=== PATIENT | male | born 1960 | race Two or more races ===

== ENCOUNTER → 2017-06-04 | Outpatient (CLI) | payer OTHER ==
[2017-05-09 10:30] VITALS: BP 121/68
[~2017-06-04] MED LIST: AMIO200T2 PO; AMLO1TAB97 PO; ASPI-612 PO; ASPI325T11 PO; AZOR; FURO20TA3 PO; INSU100I17 SQ; INSU200I4 SQ; METF-620 PO; METO25TA4 PO; NALT1TAB PO; OXYC1TAB7 PO; SIMV20TA3 PO; SITA100T PO
--- NOTE | 2017-06-04 16:24 | RAD ---
EXAM: Chest 2 views. HISTORY: Coronary artery bypass grafting. COMPARISON: 05/09/2017. FINDINGS: Frontal and lateral views of the chest are obtained. There are changes of coronary artery bypass grafting. The inspiration is small. There is associated atelectasis in the right greater than left bases. Trace pleural effusions are likely present. There is no pneumothorax. The heart is mildly enlarged. IMPRESSION: 1. Small inspiration with right greater than left basilar atelectasis. 2. Mild cardiomegaly.
== END | disposition home or self-care (01) ==
LOC: RAD 14:57
PROVIDERS: ATTEND Thoracic Surgery (Cardiothoracic Vascular Surgery)
DX: I51.7 Cardiomegaly (principal); J98.11 Atelectasis; Z95.1 Presence of aortocoronary bypass graft
CPT/HCPCS: 71020

== ENCOUNTER → 2017-06-15 | Outpatient (CLI) | payer OTHER ==
[2017-05-09 10:30] VITALS: BP 121/68
[2017-06-15 12:02] LABS: BASO # 0.1 x10^3/uL (0.0-0.2); BASO % 1 % (0-3); EOS % 2 % (0-3); HEMATOCRIT 38.6 % (39.0-53.0); HEMOGLOBIN 12.1 g/dL (13.0-17.5); LYMPH # 5.7 x10^3/uL (1.0-4.8); LYMPH % 48 % (24-48); MEAN CORPUSCULAR HEMOGLOBIN 27 pg (25-35); MEAN CORPUSCULAR HGB CONC 31 g/dL (31-37); MEAN CORPUSCULAR VOLUME 85 fL (79-100); MONO % 8 % (0-9); NEUT % 42 % (31-73); PLATELET COUNT 316 x10^3/uL (140-400); RED BLOOD COUNT 4.54 x10^6/uL (4.30-5.70); WHITE BLOOD COUNT 11.8 x10^3/uL (4.0-11.0)
[2017-06-15 12:06] LABS: CALCIUM 9.6 mg/dL (8.5-10.1); CREATININE 1.7 mg/dL (0.7-1.3); GFR 41.6; MAGNESIUM 1.5 mg/dL (1.8-2.4); POTASSIUM 4.2 mmol/L (3.5-5.1)
== END | disposition home or self-care (01) ==
LOC: LAB 11:29
PROVIDERS: ATTEND Internal Medicine Cardiovascular Disease
DX: I11.0 Hypertensive heart disease with heart failure (principal); I50.9 Heart failure, unspecified; Z95.1 Presence of aortocoronary bypass graft
CPT/HCPCS: 36415; 80048; 83735; 85025

== ENCOUNTER → 2020-04-26 | Outpatient (CLI) | payer OTHER ==
[2018-06-18 10:47] VITALS: BP 127/35
[~2020-04-26] MED LIST changes: -AMIO200T2 PO; +AMIO200T4 PO; +AMIT25TA PO; -ASPI-612 PO; +ASPI-886 PO; +ATORVASTATIN CA80 MG PO; +FURO40TA4 PO; +INSU100V13 SQ; +LISI-338 PO; -METF-620 PO; +METF10007 PO; +METO50TA6 PO; +SIMV20TA18 PO; -SIMV20TA3 PO; +SPIR25TA5 PO
--- NOTE | 2020-04-26 13:27 | CARD ---
MR#: [id number] Date of Study: 04/26/2020 Ordering Physician: GERMAN ORR, Referring Physician: GERMAN ORR, Tech: Aracelis Braswell [facility] APPROVED REPORT EXAM: Two-dimensional and M-mode echocardiogram with Doppler and color Doppler. Other Information Quality : Technically Limited Technically limited study due to morbid obesity INDICATION Cardiomyopathy Surgery/Intervention CABG: Date: 04/26/2017 2D DIMENSIONS RVDd3.9 (2.9-3.5cm)Left Atrium(2D)5.0 (1.6-4.0cm) IVSd1.2 (0.7-1.1cm)Aortic Root(2D)3.7 (2.0-3.7cm) LVDd5.7 (3.9-5.9cm)LVOT Diameter2.4 (1.8-2.4cm) PWd1.2 (0.7-1.1cm)LVDs3.8 (2.5-4.0cm) FS (%) 33.2 %SV97.1 ml LVEF(%)61.2 (>50%) Aortic Valve AoV Peak Maurice.108.9cm/sAoV VTI20.0cm AO Peak GR.4.7mmHgLVOT Peak Maurice.88.8cm/s AO Mean GR.3mmHgAVA (VMAX)3.65cm2 MATHEW (VTI)4.30cm2 Mitral Valve MV E Qqtdmxtr42.4cm/sMV DECEL PIEB696vc MV A Gzeacupr46.0cm/sE/A Ratio1.3 Tricuspid Valve TR P. Goyrexep980ob/sRAP ZYSYSOMU4rpEy TR Peak Gr.80huXzAEWH13fhNa Pulmonary Vein S1 Jgwccpdl83.0cm/sD2 Bmxisbyi86.0cm/s LEFT VENTRICLE The left ventricle is normal size. There is mild concentric left ventricular hypertrophy. The left ve ntricular systolic function is normal and the ejection fraction is within normal range. The Ejection Fraction is 55-60%. Septal motion suggestive of prior CABG. Otherwise, grossly normal wall motion. Te chnically limited images. RIGHT VENTRICLE The right ventricle is mildly dilated. The right ventricular systolic function is normal. ATRIA The left atrium is moderately dilated. The right atrium is moderately dilated. The interatrial septum is intact with no evidence for an atrial septal defect or patent foramen ovale as noted on 2-D or Do ppler imaging. AORTIC VALVE The aortic valve is calcified but opens well. Doppler and Color Flow revealed no significant aortic r egurgitation. There is no significant aortic valvular stenosis. MITRAL VALVE The mitral valve is calcified but opens well. There is no evidence of mitral valve prolapse. There is no mitral valve stenosis. Doppler and Color-flow revealed trace mitral regurgitation. TRICUSPID VALVE The tricuspid valve is normal in structure and function. Doppler and Color Flow revealed trace tricus pid regurgitation. There is mild-moderate pulmonary hypertension. The PA pressure was estimated at 39 mmHg. There is no tricuspid valve stenosis. PULMONIC VALVE The pulmonic valve is not well visualized. Doppler and Color Flow revealed no pulmonic valvular regur gitation. There is no pulmonic valvular stenosis. GREAT VESSELS The aortic root is normal in size. The ascending aorta is not well seen. The IVC was not visualized. PERICARDIAL EFFUSION There is no evidence of significant pericardial effusion. Critical Notification Critical Value: No <Conclusion> The left ventricular systolic function is normal and the ejection fraction is within normal range. Th e Ejection Fraction is 55-60%. Septal motion suggestive of prior CABG. Otherwise, grossly normal wall motion. Technically limited im ages. Signed by : Jae Bob, Electronically Approved : 04/26/2020 13:26:48
== END | disposition home or self-care (01) ==
LOC: ECHO 09:40
PROVIDERS: ATTEND Internal Medicine Cardiovascular Disease
DX: I08.0 Rheumatic disorders of both mitral and aortic valves (principal); I27.20 Pulmonary hypertension, unspecified; I42.9 Cardiomyopathy, unspecified; Z95.1 Presence of aortocoronary bypass graft
CPT/HCPCS: 93306

== ENCOUNTER 2020-09-14 14:57 | Inpatient (IN) | payer OTHER ==
[~2020-09-14] VITALS: Ht 172.7 cm; Wt 132.9 kg
[~2020-09-14 14:57] MED LIST changes: -AMIO200T4 PO; +AMIO200T6 PO; -LISI-338 PO; +LISI-517 PO
[2020-09-14 16:52] LABS: BASO % 0 % (0-3); EOS % 0 % (0-3); HEMATOCRIT 38.1 % (39.0-53.0); HEMOGLOBIN 12.8 g/dL (13.0-17.5); LYMPH # 1.8 x10^3/uL (1.0-4.8); LYMPH % 27 % (24-48); MEAN CORPUSCULAR HEMOGLOBIN 29 pg (25-35); MEAN CORPUSCULAR HGB CONC 34 g/dL (31-37); MEAN CORPUSCULAR VOLUME 85 fL (79-100); MONO # 0.6 x10^3/uL (0.0-1.1); MONO % 10 % (0-9); NEUT # 4.2 x10^3/uL (1.8-7.7); NEUT % 63 % (31-73); PLATELET COUNT 234 x10^3/uL (140-400); RED BLOOD COUNT 4.48 x10^6/uL (4.30-5.70); RED CELL DISTRIBUTION WIDTH 14.9 % (11.5-14.5); WHITE BLOOD COUNT 6.7 x10^3/uL (4.0-11.0)
[2020-09-14 16:53] LABS: BILIRUBIN,URINE NEGATIVE (NEG); CLARITY,URINE CLEAR; COLOR,URINE YELLOW; NITRITE,URINE NEGATIVE (NEG); PROTEIN,URINE >=300 mg/dL (NEG-TRACE); UROBILINOGEN,URINE 0.2 mg/dL (0.2 mg/dL)
[2020-09-14 17:05] LABS: CALCIUM 8.8 mg/dL (8.5-10.1); CREATININE 1.6 mg/dL (0.7-1.3); GFR 44.2; POTASSIUM 4.3 mmol/L (3.5-5.1)
[2020-09-14 17:14] LABS: HYALINE CASTS, URINE MODERATE /HPF
[2020-09-14] MEDS ORDERED: cefTRIAXone IV Push 1 GM VIAL. IVP ONE (17:15)
[2020-09-14] MEDS ORDERED: methylPREDNISolone SOD SUCC PF 125 MG/2 ML VIAL. IV ONE (17:15)
[2020-09-14] MEDS ORDERED: AZITHRMYCN 500MG IVPB FOR OMNI 250 ML IV ONE (17:15)
[2020-09-14 17:17] LABS: BACTERIA,URINE 0 /HPF (0-FEW); GRANULAR CASTS,URINE FEW /HPF; RBC,URINE 0 /HPF (0-2); WBC,URINE 0 /HPF (0-4)
[2020-09-14 17:18] LABS: ALBUMIN 2.4 g/dL (3.4-5.0); ALBUMIN/GLOBULIN RATIO 0.5 (1.0-1.7); MAGNESIUM 2.1 mg/dL (1.8-2.4); TOTAL BILIRUBIN 0.5 mg/dL (0.2-1.0); TOTAL PROTEIN 7.4 g/dL (6.4-8.2)
--- NOTE | 2020-09-14 17:19 | RAD ---
Single view chest dated 09/14/2020. Comparison made to 06/16/2018. Clinical data indication: Chest pain. FINDINGS: Single AP view performed. Heart size mildly enlarged, stable. The patient is status post median barton otomy. The upper most sternal wires are fractured, new from prior study. Patchy perihilar airspace di sease, left greater than right, increased from prior exam. Elevation of right hemidiaphragm. No appar ent pleural effusion. No pneumothorax. IMPRESSION: Increasing perihilar airspace disease, suspicious for pneumonia. Covid 19 pneumonitis not excluded. Electronically signed by: Carlo Swenson MD (09/14/2020 5:17 PM) SHONA
[2020-09-14] MEDS ORDERED: IV NORMAL SALINE 1000ML BAG 1,000 ML IV ONE (17:30)
--- NOTE | 2020-09-14 17:40 | ED.ADGEN ---
Past Medical History Past Medical History: CAD, CHF, Diabetes-Type II, High Cholesterol, Hypertension Past Surgical History: Coronary Bypass Surgery Additional Past Surgical Histo: 05/02/17 Smoking Status: Former Smoker Alcohol Use: None Drug Use: None General Adult EDM: Chief Complaint: SHORTNESS OF BREATH HPI: HPI: Patient is a 59 year old male who presents to the emergency department with complaints of diarrhea for the last week. Patient reports anything that he eats has gone right through him. He denies any blood in his stool. The patient denies any abdominal pain. He reports that today he had one episode of vomiting and he also noticed that he felt short of breath. He denies any COVID-19 exposure he denies any fever, cough, sore throat, or loss of taste/smell. The patient denies any chest pain, or palpitations. He reports that he has had fati ryan and body aches and that his shortness of breath gets worse with ambulation. The patient has history of diabetes he denies any polyuria, polydipsia, polyphagia. He currently reports generalized abdominal pain that he rates a 5 out of 10 on the pain scale, he denies any alleviating factors, the discomfort increases after eating. Review of Systems: Review of Systems: Complete ROS is negative unless otherwise noted in HPI. Current Medications: Current Medications Medications (Trade) Dose Ordered Sig/Edward Start Time Stop Time Status Last Admin Dose Admin Azithromycin 250 ml @ 250 mls/hr 1X ONCE 09/14/20 17:15 09/14/20 18:14 Ceftriaxone Sodium (Rocephin) 1 gm 1X ONCE 09/14/20 17:15 09/14/20 17:16 DC Dexamethasone Sodium Phosphate (Decadron) 10 mg 1X ONCE 09/14/20 17:45 09/14/20 17:46 Methylprednisolone Sodium Succinate (SOLU-Medrol 125MG VIAL) 125 mg 1X ONCE 09/14/20 17:15 09/14/20 17:37 DC Sodium Chloride 1,000 ml @ 1,000 mls/hr 1X ONCE 09/14/20 17:30 09/14/20 18:29 Allergies: Allergies: Allergies Coded Allergies Type Severity Reaction Last Updated Verified No Known Drug Allergies 04/26/17 No Physical Exam: PE: See Above Constitutional: Well developed, well nourished, no acute distress, non-toxic appearance, obese. [] HENT: Normocephalic, atraumatic, bilateral external ears normal, nose normal. [] Eyes: PERRLA, EOMI, conjunctiva normal, no discharge. [] Neck: Normal range of motion, no stridor. [] Cardiovascular:Heart rate regular rhythm Lungs & Thorax: Respirations even and unlabored, no retractions, no respiratory distress, lung sounds diminished, speaking full sentences Abdomen: soft, no tenderness, no rebound tenderness, no guarding, no pulsatile mass, no palpable mass Skin: Warm, dry, no erythema, no rash. [] Extremities: No cyanosis, ROM intact, no edema. [] Neurologic: Alert and oriented X 3, normal motor, normal sensory no focal deficits noted. [] Psychologic: Affect normal, judgement normal, mood normal. [] Current Patient Data: Labs: Laboratory Tests Test 09/14/20 15:45 09/14/20 16:20 Urine Collection Type Unknown Urine Color Yellow Urine Clarity Clear Urine pH 6.0 (<5.0-8.0) Urine Specific [place] >=1.030 (1.000-1.030) Urine Protein >=300 mg/dL (NEG-TRACE) Urine Glucose (UA) >=1000 mg/dL (NEG) Urine Ketones (Stick) Trace mg/dL (NEG) Urine Blood Moderate (NEG) Urine Nitrite Negative (NEG) Urine Bilirubin Negative (NEG) Urine Urobilinogen Dipstick 0.2 mg/dL (0.2 mg/dL) Urine Leukocyte Esterase Negative (NEG) Urine RBC 0 /HPF (0-2) Urine WBC 0 /HPF (0-4) Urine Squamous Epithelial Cells Mod /LPF Urine Bacteria 0 /HPF (0-FEW) Urine Cellular Casts Few /HPF Urine Hyaline Casts Moderate /HPF Urine Granular Casts Few /HPF Urine Mucus Mod /LPF White Blood Count 6.7 x10^3/uL (4.0-11.0) Red Blood Count 4.48 x10^6/uL (4.30-5.70) Hemoglobin 12.8 g/dL (13.0-17.5) L Hematocrit 38.1 % (39.0-53.0) L Mean Corpuscular Volume 85 fL (79-100) Mean Corpuscular Hemoglobin 29 pg (25-35) Mean Corpuscular Hemoglobin Concent 34 g/dL (31-37) Red Cell Distribution Width 14.9 % (11.5-14.5) H Platelet Count 234 x10^3/uL (140-400) Neutrophils (%) (Auto) 63 % (31-73) Lymphocytes (%) (Auto) 27 % (24-48) Monocytes (%) (Auto) 10 % (0-9) H Eosinophils (%) (Auto) 0 % (0-3) Basophils (%) (Auto) 0 % (0-3) Neutrophils # (Auto) 4.2 x10^3/uL (1.8-7.7) Lymphocytes # (Auto) 1.8 x10^3/uL (1.0-4.8) Monocytes # (Auto) 0.6 x10^3/uL (0.0-1.1) Eosinophils # (Auto) 0.0 x10^3/uL (0.0-0.7) Basophils # (Auto) 0.0 x10^3/uL (0.0-0.2) D-Dimer (Alena) 0.90 ug/mlFEU (0.00-0.50) H Sodium Level 133 mmol/L (136-145) L Potassium Level 4.3 mmol/L (3.5-5.1) Chloride Level 95 mmol/L (98-107) L Carbon Dioxide Level 23 mmol/L (21-32) Anion Gap 15 (6-14) H Blood Urea Nitrogen 26 mg/dL (8-26) Creatinine 1.6 mg/dL (0.7-1.3) H Estimated GFR (Cockcroft-Gault) 44.2 BUN/Creatinine Ratio 16 (6-20) Glucose Level 367 mg/dL (70-99) H Lactic Acid Level 2.2 mmol/L (0.4-2.0) H Calcium Level 8.8 mg/dL (8.5-10.1) Magnesium Level 2.1 mg/dL (1.8-2.4) Total Bilirubin 0.5 mg/dL (0.2-1.0) Aspartate Amino Transferase (AST) 29 U/L (15-37) Alanine Aminotransferase (ALT) 23 U/L (16-63) Alkaline Phosphatase 112 U/L (46-116) Creatine Kinase 102 U/L (39-308) Creatine Kinase MB (Mass) 0.5 ng/mL (0.0-3.6) Creatine Kinase MB Relative Index 0.5 % (0-4) Troponin I Quantitative < 0.017 ng/mL (0.000-0.055) LY-Mbo-K-Type Natriuretic Peptide 210 pg/mL (0-124) H Total Protein 7.4 g/dL (6.4-8.2) Albumin 2.4 g/dL (3.4-5.0) L Albumin/Globulin Ratio 0.5 (1.0-1.7) L Lipase 149 U/L (73-393) Laboratory Tests 09/14/20 16:20 Laboratory Tests 09/14/20 16:20 Vital Signs: Vital Signs Date Time Temp Pulse Resp B/P (MAP) Pulse Ox O2 Delivery O2 Flow Rate FiO2 09/14/20 17:32 99.8 77 28 134/66 (88) 92 Nasal Cannula 3.0 99.8 EKG: EK-sinus rhythm, PACs, leftward axis, incomplete right bundle branch block, no STEMI, read by Dr. Bull [] Heart Score: Risk Factors: Risk Factors: DM, Current or recent (<one month) smoker, HTN, HLP, family history of CAD, obesity. Risk Scores: Score 0 - 3: 2.5% MACE over next 6 weeks - Discharge Home Score 4 - 6: 20.3% MACE over next 6 weeks - Admit for Clinical Observation Score 7 - 10: 72.7% MACE over next 6 weeks - Early Invasive Strategies Radiology/Procedures: Radiology/Procedures: PROCEDURE: CHEST AP ONLY Single view chest dated 09/14/2020. Comparison made to 06/16/2018. Clinical data indication: Chest pain. FINDINGS: Single AP view performed. Heart size mildly enlarged, stable. The patient is status post median sternotomy. The upper most sternal wires are fractured, new from prior study. Patchy perihilar airspace disease, left greater than right, increased from prior exam. Elevation of right hemidiaphragm. No apparent pleural effusion. No pneumothorax. IMPRESSION: Increasing perihilar airspace disease, suspicious for pneumonia. Covid 19 pneumonitis not excluded. [] Course & Med Decision Making: Course & Med Decision Making Pertinent Labs and Imaging studies reviewed. (See chart for details) [id number]-spoke with Dr. Chirinos who is the admitting physician, and care was assumed following discussion of patient. Will admit patient for PUI, hypoxia, and pneumonia Patient's vital signs stable. Patient remains afebrile, appears nontoxic, respirations even and unlabored. Patient will be admitted to the medical telemetry floor. Patient's case and plan of care also discussed with Dr. Bull [] Robin Disclaimer: Robin Disclaimer: This electronic medical record was generated, in whole or in part, using a voice recognition dictation system. Departure Departure Impression: Primary Impression: Person under investigation for COVID-19 Additional Impressions: Hypoxia Pneumonia Disposition: ADMITTED INPT THIS HOSP Admitting Physician: NIGHAT (crystal) Condition: STABLE Referrals: SATYA DE OLIVEIRA (PCP) Problem Qualifiers Additional Impressions: Pneumonia Pneumonia type: due to unspecified organism Laterality: bilateral Lung location: unspecified part of lung Qualified Codes: J18.9 - Pneumonia, unspecified organism JESSICA HOSKINS [employer] Sep 14, 2020 17:40
[2020-09-14] MEDS ORDERED: DEXAMETHASONE SOD PHOS 20 MG/5 ML VIAL. IV ONE (17:45)
--- NOTE | 2020-09-14 19:09 | EKG ---
[facility] [address] [place] [address] Test Date: 2020-09-14 Test Time: 15:42:32 Pat Name: BNE ESPINAL Department: Room: Gender: M Cleat Feeder: : 1960 Requested By: JESSICA HOSKINS Order Number: [id number] Reading MD: Measurements Intervals [place] Rate: 78 P: 45 ME: 150 QRS: -24 QRSD: 94 T: 39 QT: 378 QTc: 434 Interpretive Statements SINUS RHYTHM ATRIAL PREMATURE COMPLEX(ES) LEFTWARD AXIS INCOMPLETE RIGHT BUNDLE BRANCH BLOCK OTHERWISE NORMAL ECG RI6.02 No previous ECG available for comparison
[2020-09-14] MEDS ORDERED: IOHEXOL 350 MG/ML 100 ML VIAL. IV ONE (19:15)
[2020-09-14 19:34] LABS: INFLUENZA A PATIENT NEGATIVE (NEGATIVE); INFLUENZA B PATIENT NEGATIVE (NEGATIVE)
--- NOTE | 2020-09-14 20:03 | RAD ---
INDICATION: Reason: elevated d-dimer, hypoxia / Spl. Instructions: omni 350 80 ml iv / History: COMPARISON: Plain film from earlier same day TECHNIQUE: Axial CT images obtained through the chest. Intravenous contrast utilized. Angiogram 3D images proce ssed per protocol. One or more of the following individualized dose reduction techniques were utilized for this examinat ion: 1. Automated exposure control; 2. Adjustment of the mA and/or kV according to patient size; 3 . Use of iterative reconstruction technique. FINDINGS: Hypoexpanded examination of the lungs. Multifocal opacities are seen bilaterally including nodular and groundglass component. No pneumothorax. Exophytic lesion at the left kidney is suspected measuring approximately 24 mm. Partially visualized upper abdomen the liver appears low density which can be seen with fatty infiltr ation. Is also some nodularity to the liver contour. Poststernotomy changes. There are some scattered prominent lymph nodes within the mediastinum. Post-CABG changes. Coronary artery calcific atherosclerosis. There is some apparent narrowing of the origin of the celiac artery. No embolus in the main, right main or left main pulmonary artery. Peripheral evaluation is obscured s econdary to a large amount of patient motion. IMPRESSION: No embolus in the main, right main or left main pulmonary artery with the more peripheral vessels obs cured by motion and not well evaluated. Multifocal opacities throughout the bilateral lungs which could be infectious in nature including fro m viral/atypical causes. There is some prominent lymph nodes in the mediastinum which could be reactive in nature. Coronary artery calcific atherosclerosis. Low-density lesion at the posterior aspect of the left kidney which does not have the appearance of s imple cyst. Could be from a proteinaceous cyst but solid lesions in the differential as well. If furt her evaluation is desired nonemergent ultrasound, CT or MRI could further assess Liver is low density which can be seen with fatty infiltration. Electronically signed by: Rajesh Alvarez MD (09/14/2020 8:01 PM) [id number]
[2020-09-14 20:40] VITALS: BP 150/47
[2020-09-14] MEDS ORDERED: DEXTROSE 50% 25 GM / 50ML DISP.SYRIN. IV PRN (20:45)
[2020-09-14] MEDS ORDERED: ONDANSETRON PF 4 MG/2 ML VIAL. IVP PRN (21:00)
[2020-09-14] MEDS ORDERED: CALCIUM CARBONATE 500 MG TAB.CHEW PO PRN (21:00)
[2020-09-14] MEDS ORDERED: INSULIN GLARGINE SYRINGE. SQ SCH ×2 (21:00)
[2020-09-14] MEDS ORDERED: MAG HYDROX/ALUMINUM HYD/SIMETH 30 ML ORAL.SUSP PO PRN (21:00)
[2020-09-14] MEDS ORDERED: LOPERAMIDE 2 MG CAPSULE PO PRN (21:00)
[2020-09-14] MEDS ORDERED: BISACODYL 10 MG SUPP.RECT. PR PRN (21:00)
[2020-09-14] MEDS ORDERED: ZOLPIDEM 5 MG TABLET. PO PRN (21:00)
[2020-09-14] MEDS ORDERED: MAGNESIUM HYDROXIDE 2,400 MG/30 ML ORAL.SUSP. PO PRN (21:00)
[2020-09-14] MEDS ORDERED: ACETAMINOPHEN 325 MG TABLET. PO PRN (21:00)
--- NOTE | 2020-09-14 21:19 | PDOC1 ---
History and Physical Date of Admission Date of Admission DATE: 09/14/20 TIME: 21:06 Identification/Chief Complaint Chief Complaint Diarrhea Source Source: Patient History of Present Illness History of Present Illness Patient 59-year-old male with past medical history CAD, CHF, DM 2, who presents to the ED with complaint of constant diarrhea over the past 8 days. He also reports associated fatigue, weakness decreased appetite, nausea, and vomiting x1 today. He denies any fever or known sick contacts at home. He denies any recent antibiotic use. Upon arrival in the ED he was saturating 86% on room air, which improved with 2 L O2. Chest x-ray on admission showed increased perihilar airspace disease, consistent with COVID-19 pneumonia. Due to elevated D-dimer CTA was obtained that was negative for PE. Admit patient for further medical management. Past Medical History Cardiovascular: HTN, Hyperlipidemia Pulmonary: No pertinent hx GI: No pertinent hx Heme/Onc: No pertinent hx Hepatobiliary: No pertinent hx Psych: No pertinent hx Musculoskeletal: Osteoarthritis Rheumatologic: No pertinent hx Infectious disease: No pertinent hx Endocrine: Diabetes, Other Past Surgical History Past Surgical History CABG Family History Family History: Diabetes, Hypertension Social History Smoke: No ALCOHOL: none Drugs: None Current Problem List Problem List Problems Medical Problems: (1) Hypoxia Status: Acute (2) Person under investigation for COVID-19 Status: Acute (3) Pneumonia Status: Acute Current Medications Current Medications Current Medications Ceftriaxone Sodium (Rocephin) 1 gm 1X ONCE IVP Last administered on 09/14/20at 18:32; Start 09/14/20 at 17:15; Stop 09/14/20 at 17:16; Status DC Azithromycin 250 ml @ 250 mls/hr 1X ONCE IV Last administered on 09/14/20at 18:53; Start 09/14/20 at 17:15; Stop 09/14/20 at 18:14; Status DC Methylprednisolone Sodium Succinate (SOLU-Medrol 125MG VIAL) 125 mg 1X ONCE IV ; Start 09/14/20 at 17:15; Stop 09/14/20 at 17:37; Status DC Sodium Chloride 1,000 ml @ 1,000 mls/hr 1X ONCE IV Last administered on 09/14/20at 18:31; Start 09/14/20 at 17:30; Stop 09/14/20 at 18:29; Status DC Dexamethasone Sodium Phosphate (Decadron) 10 mg 1X ONCE IV Last administered on 09/14/20at 18:32; Start 09/14/20 at 17:45; Stop 09/14/20 at 17:46; Status DC Enoxaparin Sodium (Lovenox 150mg Syringe) 150 mg 1X ONCE SQ ; Start 09/14/20 at 19:00; Stop 09/14/20 at 18:59; Status DC Iohexol (Omnipaque 350 Mg/ml) 80 ml 1X ONCE IV Last administered on 09/14/20at 19:15; Start 09/14/20 at 19:15; Stop 09/14/20 at 19:16; Status DC Ceftriaxone Sodium (Rocephin) 1 gm Q24H IVP ; Start 09/15/20 at 09:00; Stop 09/20/20 at 08:59; Status UNV Doxycycline Hyclate 100 mg/ Dextrose 100 ml @ 50 mls/hr Q12HR IV ; Start 09/15/20 at 09:00; Stop 09/20/20 at 08:59; Status UNV Active Scripts Active Furosemide 40 Mg Tablet 1 Tab PO BID Aspirin Ec (Aspirin) 325 Mg Tablet.dr 325 Mg PO [id number] 90 Days Reported Novolog Flexpen (Insulin Aspart) 100 Unit/1 Ml Insuln.pen 20 Unit SQ TIDAC Levemir (Insulin Detemir) 100 Unit/1 Ml Vial 40 Unit SQ HS Metoprolol Tartrate 50 Mg Tablet 50 Mg PO BID Atorvastatin Calcium 80 Mg Tablet 80 Mg PO HS Lisinopril 5 Mg Tablet 1 Tab PO DAILY Amitriptyline Hcl 25 Mg Tablet 1 Tab PO QHS Januvia (Sitagliptin Phosphate) 100 Mg Tablet 1 Tab PO DAILY Metformin Hcl 1,000 Mg Tablet 1,000 Mg PO BIDWMEALS Allergies Allergies: Coded Allergies: No Known Drug Allergies (Unverified , 04/26/17) ROS Review of System GENERAL: Weakness. No history of weight change or fevers. SKIN: No bruising, hair changes or rashes. EYES: No blurred, double or loss of vision. NOSE AND THROAT: No history of nosebleeds, hoarseness or sore throat. HEART: Denies chest pain, denies palpitations. LUNGS: Denies cough, hemoptysis, wheezing or shortness of breath. GASTROINTESTINAL: Decreased appetite, nausea, vomiting, diarrhea. Denies abdominal pain. GENITOURINARY: Denies dysuria, frequency, urgency, hematuria. NEUROLOGIC: Denies history of numbness, tingling, tremor or weakness. PSYCHIATRIC: Denies anxiety, denies depression. ENDOCRINE: No history of heat or cold intolerance, polyuria or polydipsia. EXTREMITIES: Denies muscle weakness, joint pain, pain on walking or stiffness. Physical Exam Physical Exam General: Alert, Oriented X3, Cooperative, No acute distress. Morbidly obese. HEENT: PERRLA, EOMI Lungs: Tachypneic. Decreased breath sounds bilaterally, Normal air movement Heart: RRR, no murmurs Cardiovascular: S1, S2 Abdomen: Normal bowel sounds, Soft, No tenderness Extremities: No clubbing, No cyanosis Skin: No rashes, No significant lesion Neuro: Normal speech, Normal tone, Sensation intact Psych/Mental Status: Mental status NL, Mood NL Vitals Vitals Vital Signs Date Time Temp Pulse Resp B/P (MAP) Pulse Ox O2 Delivery O2 Flow Rate FiO2 09/14/20 17:32 99.8 77 28 134/66 (88) 92 Nasal Cannula 3.0 99.8 Labs Labs Laboratory Tests Test 09/14/20 15:45 09/14/20 16:20 09/14/20 19:08 Urine Collection Type Unknown Urine Color Yellow Urine Clarity Clear Urine pH 6.0 (<5.0-8.0) Urine Specific [place] >=1.030 (1.000-1.030) Urine Protein >=300 mg/dL (NEG-TRACE) Urine Glucose (UA) >=1000 mg/dL (NEG) Urine Ketones (Stick) Trace mg/dL (NEG) Urine Blood Moderate (NEG) Urine Nitrite Negative (NEG) Urine Bilirubin Negative (NEG) Urine Urobilinogen Dipstick 0.2 mg/dL (0.2 mg/dL) Urine Leukocyte Esterase Negative (NEG) Urine RBC 0 /HPF (0-2) Urine WBC 0 /HPF (0-4) Urine Squamous Epithelial Cells Mod /LPF Urine Bacteria 0 /HPF (0-FEW) Urine Cellular Casts Few /HPF Urine Hyaline Casts Moderate /HPF Urine Granular Casts Few /HPF Urine Mucus Mod /LPF White Blood Count 6.7 x10^3/uL (4.0-11.0) Red Blood Count 4.48 x10^6/uL (4.30-5.70) Hemoglobin 12.8 g/dL (13.0-17.5) Hematocrit 38.1 % (39.0-53.0) Mean Corpuscular Volume 85 fL (79-100) Mean Corpuscular Hemoglobin 29 pg (25-35) Mean Corpuscular Hemoglobin Concent 34 g/dL (31-37) Red Cell Distribution Width 14.9 % (11.5-14.5) Platelet Count 234 x10^3/uL (140-400) Neutrophils (%) (Auto) 63 % (31-73) Lymphocytes (%) (Auto) 27 % (24-48) Monocytes (%) (Auto) 10 % (0-9) Eosinophils (%) (Auto) 0 % (0-3) Basophils (%) (Auto) 0 % (0-3) Neutrophils # (Auto) 4.2 x10^3/uL (1.8-7.7) Lymphocytes # (Auto) 1.8 x10^3/uL (1.0-4.8) Monocytes # (Auto) 0.6 x10^3/uL (0.0-1.1) Eosinophils # (Auto) 0.0 x10^3/uL (0.0-0.7) Basophils # (Auto) 0.0 x10^3/uL (0.0-0.2) D-Dimer (Alena) 0.90 ug/mlFEU (0.00-0.50) Sodium Level 133 mmol/L (136-145) Potassium Level 4.3 mmol/L (3.5-5.1) Chloride Level 95 mmol/L (98-107) Carbon Dioxide Level 23 mmol/L (21-32) Anion Gap 15 (6-14) Blood Urea Nitrogen 26 mg/dL (8-26) Creatinine 1.6 mg/dL (0.7-1.3) Estimated GFR (Cockcroft-Gault) 44.2 BUN/Creatinine Ratio 16 (6-20) Glucose Level 367 mg/dL (70-99) Lactic Acid Level 2.2 mmol/L (0.4-2.0) Calcium Level 8.8 mg/dL (8.5-10.1) Magnesium Level 2.1 mg/dL (1.8-2.4) Total Bilirubin 0.5 mg/dL (0.2-1.0) Aspartate Amino Transf (AST/SGOT) 29 U/L (15-37) Alanine Aminotransferase (ALT/SGPT) 23 U/L (16-63) Alkaline Phosphatase 112 U/L (46-116) Creatine Kinase 102 U/L (39-308) Creatine Kinase MB (Mass) 0.5 ng/mL (0.0-3.6) Creatine Kinase MB Relative Index 0.5 % (0-4) Troponin I Quantitative < 0.017 ng/mL (0.000-0.055) GZ-Dde-X-Type Natriuretic Peptide 210 pg/mL (0-124) Total Protein 7.4 g/dL (6.4-8.2) Albumin 2.4 g/dL (3.4-5.0) Albumin/Globulin Ratio 0.5 (1.0-1.7) Lipase 149 U/L (73-393) Influenza Type A Antigen Negative (NEGATIVE) Influenza Type B Antigen Negative (NEGATIVE) Laboratory Tests Test 09/14/20 15:45 09/14/20 16:20 09/14/20 19:08 Urine Collection Type Unknown Urine Color Yellow Urine Clarity Clear Urine pH 6.0 (<5.0-8.0) Urine Specific [place] >=1.030 (1.000-1.030) Urine Protein >=300 mg/dL (NEG-TRACE) Urine Glucose (UA) >=1000 mg/dL (NEG) Urine Ketones (Stick) Trace mg/dL (NEG) Urine Blood Moderate (NEG) Urine Nitrite Negative (NEG) Urine Bilirubin Negative (NEG) Urine Urobilinogen Dipstick 0.2 mg/dL (0.2 mg/dL) Urine Leukocyte Esterase Negative (NEG) Urine RBC 0 /HPF (0-2) Urine WBC 0 /HPF (0-4) Urine Squamous Epithelial Cells Mod /LPF Urine Bacteria 0 /HPF (0-FEW) Urine Cellular Casts Few /HPF Urine Hyaline Casts Moderate /HPF Urine Granular Casts Few /HPF Urine Mucus Mod /LPF White Blood Count 6.7 x10^3/uL (4.0-11.0) Red Blood Count 4.48 x10^6/uL (4.30-5.70) Hemoglobin 12.8 g/dL (13.0-17.5) Hematocrit 38.1 % (39.0-53.0) Mean Corpuscular Volume 85 fL (79-100) Mean Corpuscular Hemoglobin 29 pg (25-35) Mean Corpuscular Hemoglobin Concent 34 g/dL (31-37) Red Cell Distribution Width 14.9 % (11.5-14.5) Platelet Count 234 x10^3/uL (140-400) Neutrophils (%) (Auto) 63 % (31-73) Lymphocytes (%) (Auto) 27 % (24-48) Monocytes (%) (Auto) 10 % (0-9) Eosinophils (%) (Auto) 0 % (0-3) Basophils (%) (Auto) 0 % (0-3) Neutrophils # (Auto) 4.2 x10^3/uL (1.8-7.7) Lymphocytes # (Auto) 1.8 x10^3/uL (1.0-4.8) Monocytes # (Auto) 0.6 x10^3/uL (0.0-1.1) Eosinophils # (Auto) 0.0 x10^3/uL (0.0-0.7) Basophils # (Auto) 0.0 x10^3/uL (0.0-0.2) D-Dimer (Alena) 0.90 ug/mlFEU (0.00-0.50) Sodium Level 133 mmol/L (136-145) Potassium Level 4.3 mmol/L (3.5-5.1) Chloride Level 95 mmol/L (98-107) Carbon Dioxide Level 23 mmol/L (21-32) Anion Gap 15 (6-14) Blood Urea Nitrogen 26 mg/dL (8-26) Creatinine 1.6 mg/dL (0.7-1.3) Estimated GFR (Cockcroft-Gault) 44.2 BUN/Creatinine Ratio 16 (6-20) Glucose Level 367 mg/dL (70-99) Lactic Acid Level 2.2 mmol/L (0.4-2.0) Calcium Level 8.8 mg/dL (8.5-10.1) Magnesium Level 2.1 mg/dL (1.8-2.4) Total Bilirubin 0.5 mg/dL (0.2-1.0) Aspartate Amino Transf (AST/SGOT) 29 U/L (15-37) Alanine Aminotransferase (ALT/SGPT) 23 U/L (16-63) Alkaline Phosphatase 112 U/L (46-116) Creatine Kinase 102 U/L (39-308) Creatine Kinase MB (Mass) 0.5 ng/mL (0.0-3.6) Creatine Kinase MB Relative Index 0.5 % (0-4) Troponin I Quantitative < 0.017 ng/mL (0.000-0.055) HI-Nli-P-Type Natriuretic Peptide 210 pg/mL (0-124) Total Protein 7.4 g/dL (6.4-8.2) Albumin 2.4 g/dL (3.4-5.0) Albumin/Globulin Ratio 0.5 (1.0-1.7) Lipase 149 U/L (73-393) Influenza Type A Antigen Negative (NEGATIVE) Influenza Type B Antigen Negative (NEGATIVE) Images Images Single view chest dated 09/14/2020. Comparison made to 06/16/2018. Clinical data indication: Chest pain. FINDINGS: Single AP view performed. Heart size mildly enlarged, stable. The patient is status post median sternotomy. The upper most sternal wires are fractured, new from prior study. Patchy perihilar airspace disease, left greater than right, increased from prior exam. Elevation of right hemidiaphragm. No apparent pleural effusion. No pneumothorax. IMPRESSION: Increasing perihilar airspace disease, suspicious for pneumonia. Covid 19 pneumonitis not excluded. INDICATION: Reason: elevated d-dimer, hypoxia / Spl. Instructions: omni 350 80 ml iv / History: COMPARISON: Plain film from earlier same day TECHNIQUE: Axial CT images obtained through the chest. Intravenous contrast utilized. Angiogram 3D images processed per protocol. One or more of the following individualized dose reduction techniques were utilized for this examination: 1. Automated exposure control; 2. Adjustment of the mA and/or kV according to patient size; 3. Use of iterative reconstruction technique. FINDINGS: Hypoexpanded examination of the lungs. Multifocal opacities are seen bilaterally including nodular and groundglass component. No pneumothorax. Exophytic lesion at the left kidney is suspected measuring approximately 24 mm. Partially visualized upper abdomen the liver appears low density which can be seen with fatty infiltration. Is also some nodularity to the liver contour. Poststernotomy changes. There are some scattered prominent lymph nodes within the mediastinum. Post-CABG changes. Coronary artery calcific atherosclerosis. There is some apparent narrowing of the origin of the celiac artery. No embolus in the main, right main or left main pulmonary artery. Peripheral evaluation is obscured secondary to a large amount of patient motion. IMPRESSION: No embolus in the main, right main or left main pulmonary artery with the more peripheral vessels obscured by motion and not well evaluated. Multifocal opacities throughout the bilateral lungs which could be infectious in nature including from viral/atypical causes. There is some prominent lymph nodes in the mediastinum which could be reactive in nature. Coronary artery calcific atherosclerosis. Low-density lesion at the posterior aspect of the left kidney which does not have the appearance of simple cyst. Could be from a proteinaceous cyst but solid lesions in the differential as well. If further evaluation is desired nonemergent ultrasound, CT or MRI could further assess Liver is low density which can be seen with fatty infiltration. VTE Prophylaxis Ordered VTE Prophylaxis Devices: No VTE Pharmacological Prophylaxi: Yes Assessment/Plan Assessment/Plan Acute respiratory failure with hypoxia COVID-19 PUI DM2 with hyperglycemia ANOOP secondary to vasomotor nephropathy Lactic acidosis Hypertension CHF Severe malnutrition Plan: Will treat patient empirically for COVID-19 pneumonia based on chest x-ray and lab findings IV Rocephin and doxycycline Decadron 6 mg daily COVID-19 pending Will obtain 6-minute walk; if patient has minimal O2 requirements he may be able to discharge with home oxygen and finish his COVID-19 treatment at home. No evidence of PE seen on CTA Basal/prandial insulin, HDSS insulin Will resume home medications FEN - ADA diet PPX - Lovenox FULL CODE Dispo - inpatient for above Justifications for Admission Other Justification Acute respiratory failure with hypoxia, COVID-19 PUI JAYESH TORRES MD Sep 14, 2020 21:19
[2020-09-14] MEDS ORDERED: ENOXAPARIN 40 MG/0.4 ML SYRINGE. SQ SCH (21:30)
[2020-09-14] MEDS: METOPROLOL TART IMMED RELEASE 50 MG TABLET. PO SCH (21:36)
[2020-09-14] MEDS: ATORVASTATIN CALCIUM 40 MG TABLET. PO SCH (21:36)
[2020-09-14 23:31] VITALS: BP 123/54
[2020-09-15 03:33] VITALS: BP_SYST 100; BP_SYST 117; BP_DIAS 50; BP_DIAS 63
[2020-09-15 07:00] VITALS: BP 133/65
[2020-09-15] MEDS ORDERED: INSULIN LISPRO 300 UNITS/3 ML VIAL. SQ SCH ×2 (08:00)
--- NOTE | 2020-09-15 08:25 | NUR ---
Pt's FSBS [address] Reilly notified by telephone. Orders received to give pt his scheduled dose of Humalog 20 units, then an additional 12 units of Humalog to make a total of 32 units.
[2020-09-15] MEDS: INSULIN LISPRO 300 UNITS/3 ML VIAL. SQ SCH ×5 (08:30→20:19)
--- NOTE | 2020-09-15 08:34 | PDOC ---
[employer] PROGRESS NOTE Date of Service DOS: DATE: 09/15/20 TIME: 08:31 Chief Complaint Chief Complaint Acute respiratory failure with hypoxia COVID-19 DM2 with hyperglycemia ANOOP secondary to vasomotor nephropathy Lactic acidosis Hypertension CHF Severe malnutrition Plan: Will treat patient empirically for COVID-19 pneumonia based on chest x-ray and lab findings - add remdesivir IV Rocephin and doxycycline Decadron 6 mg daily COVID-19 Will obtain 6-minute walk prior to d/c home No evidence of PE seen on CTA Basal/prandial insulin, HDSS insulin Will resume home medications FEN - ADA diet PPX - Lovenox FULL CODE Dispo - inpatient for above History of Present Illness History of Present Illness Mr Mccormack 59-year-old male with past medical history CAD s/p CABG x3 in 2017, CHF, DM 2, who presents to the ED with complaint of constant diarrhea over the past 8 days. He also reports associated fatigue, weakness decreased appetite, nausea, and vomiting x1 today. He denies any fever or known sick contacts at home. He denies any recent antibiotic use. Upon arrival in the ED he was saturating 86% on room air, which improved with 2 L O2. Chest x-ray on admission showed increased perihilar airspace disease, consistent with COVID-19 pneumonia. Due to elevated D-dimer CTA was obtained that was negative for PE. Hypoxic to 91% on 3 L nasal cannula O2. He actually states his appetite is returning a little better less loose bowel movements. Glucose in the 500s however. He is amenable to starting remdesivir given his O2 requirements. He is in good spirits and asking when he can go home. Vitals/I&O Vitals/I&O: Vital Signs Date Time Temp Pulse Resp B/P (MAP) Pulse Ox O2 Delivery O2 Flow Rate FiO2 09/15/20 07:00 98.9 79 17 133/65 (87) 93 Nasal Cannula 3.0 98.9 I & O 09/14/20 09/14/20 09/15/20 15:00 23:00 07:00 Intake Total 1250 ml Output Total 500 ml 1400 ml Balance 750 ml -1400 ml Physical Exam General: Alert, Oriented X3, Cooperative Heart: Regular rate, Normal S1, Normal S2 Lungs: Crackles, Other Labs Labs: Laboratory Tests Test 09/14/20 15:45 09/14/20 16:20 09/14/20 19:08 09/14/20 20:26 Urine Collection Type Unknown Urine Color Yellow Urine Clarity Clear Urine pH 6.0 (<5.0-8.0) Urine Specific [place] >=1.030 (1.000-1.030) Urine Protein >=300 mg/dL (NEG-TRACE) Urine Glucose (UA) >=1000 mg/dL (NEG) Urine Ketones (Stick) Trace mg/dL (NEG) Urine Blood Moderate (NEG) Urine Nitrite Negative (NEG) Urine Bilirubin Negative (NEG) Urine Urobilinogen Dipstick 0.2 mg/dL (0.2 mg/dL) Urine Leukocyte Esterase Negative (NEG) Urine RBC 0 /HPF (0-2) Urine WBC 0 /HPF (0-4) Urine Squamous Epithelial Cells Mod /LPF Urine Bacteria 0 /HPF (0-FEW) Urine Cellular Casts Few /HPF Urine Hyaline Casts Moderate /HPF Urine Granular Casts Few /HPF Urine Mucus Mod /LPF White Blood Count 6.7 x10^3/uL (4.0-11.0) Red Blood Count 4.48 x10^6/uL (4.30-5.70) Hemoglobin 12.8 g/dL (13.0-17.5) Hematocrit 38.1 % (39.0-53.0) Mean Corpuscular Volume 85 fL (79-100) Mean Corpuscular Hemoglobin 29 pg (25-35) Mean Corpuscular Hemoglobin Concent 34 g/dL (31-37) Red Cell Distribution Width 14.9 % (11.5-14.5) Platelet Count 234 x10^3/uL (140-400) Neutrophils (%) (Auto) 63 % (31-73) Lymphocytes (%) (Auto) 27 % (24-48) Monocytes (%) (Auto) 10 % (0-9) Eosinophils (%) (Auto) 0 % (0-3) Basophils (%) (Auto) 0 % (0-3) Neutrophils # (Auto) 4.2 x10^3/uL (1.8-7.7) Lymphocytes # (Auto) 1.8 x10^3/uL (1.0-4.8) Monocytes # (Auto) 0.6 x10^3/uL (0.0-1.1) Eosinophils # (Auto) 0.0 x10^3/uL (0.0-0.7) Basophils # (Auto) 0.0 x10^3/uL (0.0-0.2) D-Dimer (Alena) 0.90 ug/mlFEU (0.00-0.50) Sodium Level 133 mmol/L (136-145) Potassium Level 4.3 mmol/L (3.5-5.1) Chloride Level 95 mmol/L (98-107) Carbon Dioxide Level 23 mmol/L (21-32) Anion Gap 15 (6-14) Blood Urea Nitrogen 26 mg/dL (8-26) Creatinine 1.6 mg/dL (0.7-1.3) Estimated GFR (Cockcroft-Gault) 44.2 BUN/Creatinine Ratio 16 (6-20) Glucose Level 367 mg/dL (70-99) Lactic Acid Level 2.2 mmol/L (0.4-2.0) Calcium Level 8.8 mg/dL (8.5-10.1) Magnesium Level 2.1 mg/dL (1.8-2.4) Total Bilirubin 0.5 mg/dL (0.2-1.0) Aspartate Amino Transf (AST/SGOT) 29 U/L (15-37) Alanine Aminotransferase (ALT/SGPT) 23 U/L (16-63) Alkaline Phosphatase 112 U/L (46-116) Creatine Kinase 102 U/L (39-308) Creatine Kinase MB (Mass) 0.5 ng/mL (0.0-3.6) Creatine Kinase MB Relative Index 0.5 % (0-4) Troponin I Quantitative < 0.017 ng/mL (0.000-0.055) XD-Mgn-K-Type Natriuretic Peptide 210 pg/mL (0-124) Total Protein 7.4 g/dL (6.4-8.2) Albumin 2.4 g/dL (3.4-5.0) Albumin/Globulin Ratio 0.5 (1.0-1.7) Lipase 149 U/L (73-393) Influenza Type A Antigen Negative (NEGATIVE) Influenza Type B Antigen Negative (NEGATIVE) SARS-CoV-2 Antigen (Rapid) Positive (NEGATIVE) Test 09/14/20 20:40 09/15/20 07:29 Lactic Acid Level 2.0 mmol/L (0.4-2.0) Glucose (Fingerstick) 510 mg/dL (70-99) Assessment and Plan Assessmemt and Plan Problems Medical Problems: (1) Hypoxia Status: Acute (2) Person under investigation for COVID-19 Status: Acute (3) Pneumonia Status: Acute Comment Review of Relevant I have reviewed the following items stefan (where applicable) has been applied. Medications: Current Medications Medications (Trade) Dose Ordered Sig/Edward Route PRN Reason Start Time Stop Time Status Last Admin Dose Admin Ceftriaxone Sodium (Rocephin) 1 gm 1X ONCE IVP 09/14/20 17:15 09/14/20 17:16 DC 09/14/20 18:32 Azithromycin 250 ml @ 250 mls/hr 1X ONCE IV 09/14/20 17:15 09/14/20 18:14 DC 09/14/20 18:53 Sodium Chloride 1,000 ml @ 1,000 mls/hr 1X ONCE IV 09/14/20 17:30 09/14/20 18:29 DC 09/14/20 18:31 Dexamethasone Sodium Phosphate (Decadron) 10 mg 1X ONCE IV 09/14/20 17:45 09/14/20 17:46 DC 09/14/20 18:32 Iohexol (Omnipaque 350 Mg/ml) 80 ml 1X ONCE IV 09/14/20 19:15 09/14/20 19:16 DC 09/14/20 19:15 Metoprolol Tartrate (Lopressor) 50 mg BID PO 09/14/20 21:00 09/14/20 21:36 Atorvastatin Calcium (Lipitor) 80 mg QHS PO 09/14/20 21:00 09/14/20 21:36 Enoxaparin Sodium (Lovenox 40mg Syringe) 40 mg Q24H SQ 09/14/20 21:30 09/14/20 22:15 Justifications for Admission Other Justification Acute respiratory failure with hypoxia, COVID-19 KIP HOLLINGSWORTH MD Sep 15, 2020 08:33
[2020-09-15] MEDS ORDERED: INSULIN LISPRO 300 UNITS/3 ML VIAL. SQ ONE ×2 (09:00→20:30)
[2020-09-15] MEDS: LISINOPRIL 5 MG TABLET. PO SCH (09:11)
[2020-09-15] MEDS: cefTRIAXone IV Push 1 GM VIAL. IVP SCH (09:12)
[2020-09-15] MEDS: METOPROLOL TART IMMED RELEASE 50 MG TABLET. PO SCH ×2 (09:12→21:49)
[2020-09-15] MEDS: DEXAMETHASONE SOD PHOS 4 MG/ML VIAL IVP SCH (09:12)
[2020-09-15] MEDS: DOXYCYCLINE HYCLATE 100 MG in IV DEXTROSE 5% 100ML 100 ML IV SCH ×2 (09:13→21:48)
[2020-09-15 11:00] VITALS: BP 108/44
[2020-09-15] MEDS ORDERED: guaiFENesin DM 200MG/20MG 10 ML SYRUP PO PRN (13:30)
[2020-09-15] MEDS: THIAMINE 100 MG TABLET. PO SCH (14:07)
[2020-09-15 15:00] VITALS: BP 113/63
[2020-09-15] MEDS ORDERED: REMDESIVIR LOAD in IV NORMAL SALINE 250ML TV IV ONE (15:00)
--- NOTE | 2020-09-15 16:31 | NUR ---
This RN notified Dr. Garcia by telephone of pt's FSBS of 458. 37 units of Humalog scheduled before meals, additional order received for 12 units of Humalog per sliding scale. Will administer and recheck FSBS.
[2020-09-15 19:00] VITALS: BP 119/55
[2020-09-15] MEDS ORDERED: INSULIN GLARGINE SYRINGE. SQ SCH (21:00)
[2020-09-15] MEDS: ATORVASTATIN CALCIUM 40 MG TABLET. PO SCH (21:48)
[2020-09-15] MEDS: LACTOBACILLUS RHAMNOSUS GG 1 CAPSULE. PO SCH (21:48)
[2020-09-15] MEDS: INSULIN GLARGINE SYRINGE. SQ SCH (21:51)
[2020-09-15 23:00] VITALS: BP 129/71
[2020-09-16 03:00] VITALS: BP 111/71
[2020-09-16 07:00] VITALS: BP 139/69
[2020-09-16] MEDS: LISINOPRIL 5 MG TABLET. PO SCH (08:23)
[2020-09-16] MEDS: METOPROLOL TART IMMED RELEASE 50 MG TABLET. PO SCH ×2 (08:23→21:46)
[2020-09-16] MEDS: THIAMINE 100 MG TABLET. PO SCH (08:23)
[2020-09-16] MEDS: LACTOBACILLUS RHAMNOSUS GG 1 CAPSULE. PO SCH ×2 (08:23→21:46)
[2020-09-16] MEDS: ZINC SULFATE 220 MG CAPSULE. PO SCH (08:23)
[2020-09-16] MEDS: DEXAMETHASONE SOD PHOS 4 MG/ML VIAL IVP SCH (08:24)
[2020-09-16] MEDS: DOXYCYCLINE HYCLATE 100 MG in IV DEXTROSE 5% 100ML 100 ML IV SCH ×2 (08:27→21:45)
[2020-09-16] MEDS: INSULIN LISPRO 300 UNITS/3 ML VIAL. SQ SCH ×7 (08:32→21:48)
[2020-09-16] MEDS: cefTRIAXone IV Push 1 GM VIAL. IVP SCH (08:33)
[2020-09-16 11:00] VITALS: BP 114/62
--- NOTE | 2020-09-16 12:03 | PDOC ---
[facility] PROGRESS NOTE Date of Service DOS: DATE: 09/16/20 TIME: 11:57 Chief Complaint Chief Complaint Acute respiratory failure with hypoxia COVID-19 DM2 with hyperglycemia ANOOP secondary to vasomotor nephropathy Lactic acidosis Hypertension CHF Severe malnutrition History of Present Illness History of Present Illness 09/16/20 Pt seen and examined. Pt had BS of 406 this morning - he is on insulin sliding scale. Pt being treated for covid with remdesivir, decadron and IV rocephin and doxycycline. Awaiting PCR covid test. Rapid - positive DWRN Chart reviewed 09/15/20 Mr Mccormack 59-year-old male with past medical history CAD s/p CABG x3 in 2017, CHF, DM 2, who presents to the ED with complaint of constant diarrhea over the past 8 days. He also reports associated fatigue, weakness decreased appetite, nausea, and vomiting x1 today. He denies any fever or known sick contacts at home. He denies any recent antibiotic use. Upon arrival in the ED he was saturating 86% on room air, which improved with 2 L O2. Chest x-ray on admission showed increased perihilar airspace disease, consistent with COVID-19 pneumonia. Due to elevated D-dimer CTA was obtained that was negative for PE. Hypoxic to 91% on 3 L nasal cannula O2. He actually states his appetite is returning a little better less loose bowel movements. Glucose in the 500s however. He is amenable to starting remdesivir given his O2 requirements. He is in good spirits and asking when he can go home. Vitals/I&O Vitals/I&O: Vital Signs Date Time Temp Pulse Resp B/P (MAP) Pulse Ox O2 Delivery O2 Flow Rate FiO2 09/16/20 11:00 97.9 53 26 114/62 (79) 95 Nasal Cannula 3.0 97.9 I & O 09/15/20 09/15/20 09/16/20 15:00 23:00 07:00 Intake Total 340 ml 530 ml 500 ml Output Total 800 ml 750 ml Balance -460 ml 530 ml -250 ml Physical Exam General: Alert, Oriented X3, Cooperative Heart: Regular rate, Normal S1, Normal S2 Lungs: Crackles, Other Abdomen: Normal bowel sounds Extremities: No clubbing Skin: No rashes Labs Labs: Laboratory Tests Test 09/15/20 16:09 09/15/20 19:57 09/16/20 07:36 09/16/20 11:33 Glucose (Fingerstick) 458 mg/dL (70-99) 431 mg/dL (70-99) 406 mg/dL (70-99) 343 mg/dL (70-99) Review of Systems Review of Systems: Denies headache Denies numbness Assessment and Plan Assessmemt and Plan Problems Medical Problems: (1) Hypoxia Status: Acute (2) Person under investigation for COVID-19 Status: Acute (3) Pneumonia Status: Acute Plan: Ordered daily vitamins w/ minerals. Continue remdesivir (day 2) Continue IV Rocephin and doxycycline Copntinue Decadron 6 mg daily COVID-19 protocol Will obtain 6-minute walk prior to d/c home No evidence of PE seen on CTA Continue insulin sliding scale home medications DVT prophylaxis ADA diet Full code Comment Review of Relevant I have reviewed the following items stefan (where applicable) has been applied. Medications: Current Medications Medications (Trade) Dose Ordered Sig/Edward Route PRN Reason Start Time Stop Time Status Last Admin Dose Admin Remdesivir 200 mg/ Sodium Chloride 210 ml @ 210 mls/hr 1X ONCE IV 09/15/20 15:00 09/15/20 15:59 DC 09/15/20 14:52 Insulin Glargine (Lantus Syringe) 50 unit QHS SQ 09/15/20 21:00 09/15/20 21:51 Insulin Human Lispro (HumaLOG) 37 units TIDAC SQ 09/15/20 16:30 09/16/20 11:37 Insulin Human Lispro (HumaLOG) 0-9 UNITS TIDACHC SQ 09/15/20 16:30 09/16/20 11:38 Zinc Sulfate (Orazinc) 220 mg DAILY PO 09/16/20 09:00 09/16/20 08:23 Thiamine Mononitrate (Vitamin B-1) 100 mg DAILY PO 09/15/20 14:00 09/16/20 08:23 Enoxaparin Sodium (Lovenox 60mg Syringe) 60 mg Q12HR SQ 09/15/20 21:00 09/16/20 08:22 Lactobacillus Rhamnosus (Culturelle) 1 cap BID PO 09/15/20 21:00 09/16/20 08:23 Insulin Human Lispro (HumaLOG) 18 units 1X ONCE SQ 09/15/20 20:30 09/15/20 20:31 DC 09/15/20 21:52 Justifications for Admission Other Justification Acute respiratory failure with hypoxia, COVID-19 CHERI BATES III DO Sep 16, 2020 12:03
--- NOTE | 2020-09-16 13:18 | NUR ---
SW following for discharge planning. Spoke with RN and reviewed chart. Pt currently on 3l 02, ADA diet, COVID positive. Pt will need a 6 min walk prior to discharge. Pt on IV Remdesivier until 09/19. Pt on IV Rocephin and Doxy. SW following.
[2020-09-16 15:00] VITALS: BP 118/64
[2020-09-16] MEDS: REMDESIVIR 100mg in NORMAL SALINE 250ML X 4 DAYS IV SCH (15:54)
[2020-09-16 19:00] VITALS: BP 129/69
[2020-09-16] MEDS: ATORVASTATIN CALCIUM 40 MG TABLET. PO SCH (21:46)
[2020-09-16] MEDS: INSULIN GLARGINE SYRINGE. SQ SCH (21:47)
[2020-09-16 23:01] VITALS: BP 137/58
[2020-09-17 02:47] VITALS: BP 136/62
[2020-09-17 07:00] VITALS: BP 140/73
[2020-09-17] MEDS ORDERED: MULTIVITAMIN with MINERAL TABLET. PO SCH (09:00)
[2020-09-17] MEDS: LACTOBACILLUS RHAMNOSUS GG 1 CAPSULE. PO SCH (09:20)
[2020-09-17] MEDS: LISINOPRIL 5 MG TABLET. PO SCH (09:20)
[2020-09-17] MEDS: METOPROLOL TART IMMED RELEASE 50 MG TABLET. PO SCH (09:20)
[2020-09-17] MEDS: THIAMINE 100 MG TABLET. PO SCH (09:20)
[2020-09-17] MEDS: ZINC SULFATE 220 MG CAPSULE. PO SCH (09:20)
[2020-09-17] MEDS: DEXAMETHASONE SOD PHOS 4 MG/ML VIAL IVP SCH (09:20)
[2020-09-17] MEDS: cefTRIAXone IV Push 1 GM VIAL. IVP SCH (09:33)
[2020-09-17] MEDS: DOXYCYCLINE HYCLATE 100 MG in IV DEXTROSE 5% 100ML 100 ML IV SCH (09:35)
[2020-09-17] MEDS: INSULIN LISPRO 300 UNITS/3 ML VIAL. SQ SCH ×4 (09:38→12:50)
[2020-09-17 11:00] VITALS: BP 140/63
--- NOTE | 2020-09-17 11:50 | PDOC ---
[facility] [facility] PROGRESS NOTE Date of Service DOS: DATE: 09/17/20 TIME: 11:46 Chief Complaint Chief Complaint Acute respiratory failure with hypoxia COVID-19 DM2 with hyperglycemia ANOOP secondary to vasomotor nephropathy Lactic acidosis Hypertension CHF Severe malnutrition History of Present Illness History of Present Illness 09/17/20 Pt seen and examined Pt is feeling better today and wants to go home. DWRN Chart reviewed 09/16/20 Pt seen and examined. Pt had BS of 406 this morning - he is on insulin sliding scale. Pt being treated for covid with remdesivir, decadron and IV rocephin and doxycycline. Awaiting PCR covid test. Rapid - positive DWRN Chart reviewed 09/15/20 Mr Mccormack 59-year-old male with past medical history CAD s/p CABG x3 in 2017, CHF, DM 2, who presents to the ED with complaint of constant diarrhea over the past 8 days. He also reports associated fatigue, weakness decreased appetite, nausea, and vomiting x1 today. He denies any fever or known sick contacts at home. He denies any recent antibiotic use. Upon arrival in the ED he was saturating 86% on room air, which improved with 2 L O2. Chest x-ray on admission showed increased perihilar airspace disease, consistent with COVID-19 pneumonia. Due to elevated D-dimer CTA was obtained that was negative for PE. Hypoxic to 91% on 3 L nasal cannula O2. He actually states his appetite is returning a little better less loose bowel movements. Glucose in the 500s however. He is amenable to starting remdesivir given his O2 requirements. He is in good spirits and asking when he can go home. Vitals/I&O Vitals/I&O: Vital Signs Date Time Temp Pulse Resp B/P (MAP) Pulse Ox O2 Delivery O2 Flow Rate FiO2 09/17/20 11:00 97.5 60 18 140/63 (88) 94 Nasal Cannula 2.0 97.5 I & O 09/16/20 09/16/20 09/17/20 15:00 23:00 07:00 Output Total 200 ml Balance -200 ml Physical Exam General: Alert, Oriented X3, Cooperative Heart: Regular rate, Normal S1, Normal S2 Lungs: Clear Abdomen: Normal bowel sounds Extremities: No clubbing Skin: No rashes Labs Labs: Laboratory Tests Test 09/16/20 15:54 09/16/20 19:32 09/17/20 00:44 09/17/20 07:20 Glucose (Fingerstick) 299 mg/dL (70-99) 390 mg/dL (70-99) 234 mg/dL (70-99) 270 mg/dL (70-99) Test 09/17/20 10:21 Glucose (Fingerstick) 365 mg/dL (70-99) Review of Systems Review of Systems: Denies SOB Denies chest pain Assessment and Plan Assessmemt and Plan Problems Medical Problems: (1) Hypoxia Status: Acute (2) Person under investigation for COVID-19 Status: Acute (3) Pneumonia Status: Acute Acute respiratory failure with hypoxia COVID-19 DM2 with hyperglycemia ANOOP secondary to vasomotor nephropathy Lactic acidosis Hypertension CHF Severe malnutrition Plan: Probable d/c today Script written for Augmentin 875 mg PO BID #10, Doxycycline 100 mg PO #14, and Medrol dose pack #1 Will obtain 6-minute walk prior to d/c home Continue insulin sliding scale home medications DVT prophylaxis ADA diet Full code Comment Review of Relevant I have reviewed the following items stefan (where applicable) has been applied. Medications: Current Medications Medications (Trade) Dose Ordered Sig/Edward Route PRN Reason Start Time Stop Time Status Last Admin Dose Admin Remdesivir 100 mg/ Sodium Chloride 230 ml @ 460 mls/hr Q24H IV 09/16/20 15:00 09/19/20 15:29 09/16/20 15:54 Multivitamins (Thera M Plus) 1 tab DAILY PO 09/17/20 09:00 09/17/20 09:20 Justifications for Admission Other Justification Acute respiratory failure with hypoxia, COVID-19 CHERI BATES III DO Sep 17, 2020 11:50
[2020-09-17] MEDS ORDERED: METO25TA4 PO (11:55)
--- NOTE | 2020-09-17 13:13 | NUR ---
SW following for discharge planning. Spoke with RN and reviewed chart. Pt to discharge home today, self-care. SW awaiting results of 6 min walk to determine if home 02 is needed on discharge. Pt to be provided with script for oral abx. SW following. Addendum: 09/17/20 at 1603 by CAROLYN FULTON SW No home 02 needs on discharge per RN. Pt to discharge home self-care on room air. No further SW needs at this time.
--- NOTE | 2020-09-17 14:17 | DS ---
DATE OF DISCHARGE: 09/17/2020 ADMISSION DIAGNOSIS: COVID-19 pneumonia. DISCHARGE DIAGNOSES: Resolving COVID-19 pneumonia, history of hypertension, hyperlipidemia, osteoarthritis, and diabetes. CONSULTS: None. PROCEDURES: None. HOSPITAL COURSE: The patient is a pleasant middle-aged male who presented with COVID-19 pneumonia. He was admitted to the COVID-19 unit and we treated him with COVID protocol. Over the past couple of days, he has returned to his baseline. Today, I saw and examined him, he wants to go home. We plan to discharge. He is on day #3 remdesivir, but he looks clinically great. He is off oxygen. I am going to leave him prescription for doxycycline, Medrol Dosepak, and Augmentin. DISPOSITION: Home. ACTIVITY: As tolerated. DIET: Low sodium. MEDICATIONS: Please see the MRAD. TOTAL TIME: 32 minutes. CHERI BAUER DO DR: ROSY/steve JOB#: [id number] / [id number]
[2020-09-17] MEDS: REMDESIVIR 100mg in NORMAL SALINE 250ML X 4 DAYS IV SCH (15:18)
== END 2020-09-17 16:30 | disposition home or self-care (01) | DRG 177 ==
LOC: ER 14:57 → 6 SOUTH 17:29
PROVIDERS: ADMIT Family Medicine; ATTEND Family Medicine
PROC: XW033E5 Introduction of Remdesivir Anti-infective into Peripheral Vein, Percutaneous Approach, New Technology Group 5 (ICD-10-PCS; principal; 2020-09-15)
DX: U07.1 COVID-19 (principal); J96.01 Acute respiratory failure with hypoxia; N17.0 Acute kidney failure with tubular necrosis; E43 Unspecified severe protein-calorie malnutrition; J12.82 Pneumonia due to coronavirus disease 2019; E87.2 Acidosis; E11.65 Type 2 diabetes mellitus with hyperglycemia; I11.0 Hypertensive heart disease with heart failure; I50.9 Heart failure, unspecified; I25.10 Atherosclerotic heart disease of native coronary artery without angina pectoris; E78.00 Pure hypercholesterolemia, unspecified; E78.5 Hyperlipidemia, unspecified; M19.90 Unspecified osteoarthritis, unspecified site; Z95.1 Presence of aortocoronary bypass graft; Z87.891 Personal history of nicotine dependence; Z83.3 Family history of diabetes mellitus; Z82.49 Family history of ischemic heart disease and other diseases of the circulatory system; Z79.899 Other long term (current) drug therapy; Z79.82 Long term (current) use of aspirin; Z79.4 Long term (current) use of insulin
CPT/HCPCS: 36415; 71045; 71275; 80053; 81001; 82553; 82962; 83605; 83690; 83735; 83880; 84484; 85025; 85379; 87040; 87426; 87804; 93005; 94618; 96365; 96375; J0456; J0696; J1100; J1650; J1815; J3490; J7030; J7050; J7060; Q9967; U0003; 99285-25; G0378